=== PATIENT | male | born 1950 | race Caucasian/White ===

== ENCOUNTER 2017-05-30 08:53 | Inpatient (IN) | payer MEDICARE, BC ==
[2017-05-30] MEDS ORDERED: Scopolamine 1.5 MG Transdermal Patch TOP SCH (09:00)
[2017-05-30] MEDS ORDERED: Gabapentin 300 MG Cap PO ONE (09:00)
[2017-05-30] MEDS ORDERED: Propofol 200 MG/20 ML SDV ONE (09:04)
[2017-05-30] MEDS ORDERED: Midazolam 1 MG/ML 2 ML SDV ONE (09:04)
[2017-05-30] MEDS ORDERED: Neostigmine Methylsulfate 1 MG/ML 5 ML Syringe ONE (09:04)
[2017-05-30] MEDS ORDERED: Succinylcholine 200 MG/10 ML MDV ONE (09:04)
[2017-05-30] MEDS ORDERED: Dexamethasone 4 MG/ML SDV ONE (09:04)
[2017-05-30] MEDS ORDERED: Glycopyrrolate 0.2 MG/ML 5 ML MDV ONE (09:04)
[2017-05-30] MEDS ORDERED: Rocuronium 50 MG/5 ML Vial ONE (09:04)
[2017-05-30] MEDS ORDERED: Ondansetron 4 MG/2 ML SDV ONE (09:04)
[2017-05-30] MEDS: Lactated Ringers 1,000 ML IV SCH (10:41)
[2017-05-30] MEDS ORDERED: Ketamine 500 MG/5 ML MDV IV SCH (10:45)
[2017-05-30] MEDS ORDERED: Ropivacaine 49.25 ML, Ketorolac 30 MG, EPINEPHrine 0.5 MG, cloNIDine 80 MCG, Sodium Chl... INJECT ONE ×5 (10:45)
[2017-05-30] MEDS ORDERED: Thrombin (Bovine) 5,000 Unit Kit ONE (11:10)
[2017-05-30] MEDS ORDERED: Povidone-Iodine 10% Soln 118.25 ML Bottle ONE (11:10)
[2017-05-30] MEDS ORDERED: ePHEDrine 50 MG/ML SDV ONE (13:16)
[2017-05-30] MEDS: Tranexamic Acid 1,000 MG in Sodium Chloride 0.9% 50 ML IV SCH ×4 (13:20→20:40)
[2017-05-30] MEDS: ceFAZolin 2 GM in Sodium Chloride 0.9% 50 ML IV ONE ×2 (13:39→17:10)
[2017-05-30] MEDS ORDERED: Lactated Ringers 1,000 ML ONE ×4 (13:59→16:28)
[2017-05-30] MEDS ORDERED: fentaNYL 100 MCG/2 ML SDV ONE ×4 (14:20→15:55)
[2017-05-30] MEDS ORDERED: Naloxone 0.4 MG/ML SDV IVPUSH PRN (16:44)
[2017-05-30] MEDS ORDERED: Zolpidem 5 MG Tab PO PRN (16:44)
[2017-05-30] MEDS ORDERED: Aluminum Hydroxide/Magnesium Hydroxide/Simethicone Susp 30 ML Cup PO PRN (16:44)
[2017-05-30] MEDS ORDERED: Acetaminophen/oxyCODONE 325-5 MG Tab PO PRN (16:44)
[2017-05-30] MEDS ORDERED: Sodium Chloride 0.9% 10 ML Syringe FLUSH PRN (16:44)
[2017-05-30] MEDS ORDERED: HYDROmorphone 1 MG/ML Syringe IVPUSH PRN (16:44)
[2017-05-30] MEDS ORDERED: Magnesium Hydroxide 400 MG/5 ML Susp 30 ML Cup PO PRN (16:44)
[2017-05-30] MEDS ORDERED: Sennosides 8.6 MG Tab PO PRN (16:44)
[2017-05-30] MEDS: VERIFY SCOPOLAMINE PATCH TOP SCH (17:49)
[2017-05-30] MEDS ORDERED: Ondansetron 4 MG/2 ML SDV IVPUSH PRN (19:48)
[2017-05-30] MEDS: ceFAZolin 2 GM in Sodium Chloride 0.9% 50 ML IV SCH (20:11)
--- NOTE | 2017-05-30 22:37 | OR ---
DATE OF PROCEDURE: 05/30/2017 PREOPERATIVE DIAGNOSES: 1. Lumbar spondylolisthesis, L4-5. 2. Lumbar stenosis, L4-5. 3. Lumbar foraminal stenosis, L5-S1. 4. Low back pain. 5. Lumbar radiculopathy with neurogenic claudication. POSTOPERATIVE DIAGNOSES: 1. Lumbar spondylolisthesis, L4-5. 2. Lumbar stenosis, L4-5. 3. Lumbar foraminal stenosis, L5-S1. 4. Low back pain. 5. Lumbar radiculopathy with neurogenic claudication. PROCEDURE: 1. Transforaminal lumbar interbody fusion, L4-L5 and L5-S1. 2. Insertion of interbody devices at L4-L5 and L5-S1. 3. Laminectomy required in addition decompression at L4-L5 and L5-S1. 4. Segmental instrumentation, L4-5 and L5-S1. 5. Use of intraoperative fluoroscopy. 6. Autograft from laminectomy site used in posterior lateral gutter fusion as well as interbody fusion. CO-SURGEON: JOHN Reynoso. ANESTHESIA: General endotracheal intubation. FLUID: Lactated Ringer solution. ESTIMATED BLOOD LOSS: 100 mL. COMPLICATIONS: None. SPECIMEN: None. DISCHARGE DISPOSITION: Stable to PACU. INDICATIONS FOR THE PROCEDURE: The patient was seen preoperatively by myself in the clinic. Preoperative imaging confirmed the above-mentioned diagnosis. He had failed nonoperative treatment. Risks and benefits of the procedure were explained to the patient. Informed consent was obtained. DETAILS OF PROCEDURE: The patient was seen preoperatively by myself and the anesthesia staff in the preop holding area, where the operative site was marked. He was brought to the operative suite by the anesthesia staff where general anesthesia was administered. Neuromonitoring leads were placed. Sterile Cazares catheter was placed. He was placed in the prone position on a Omar table. All extremities were found to be well padded. The back was then clipped, prepped, and draped. The fluoroscopy unit was draped in a sterile manner. Time-out was called identifying the correct patient, correct procedure, the correct site, and antibiotics had been given at appropriate period of time. Lateral fluoroscopy was used to visualize the pedicles of L4-S1 in the midline. An incision was made down through the skin, and into the tip to the fascia. Bleeding was controlled during the case with Bovie electrocautery, bipolar electrocautery, as well as an Aquamantys 5.0 unit. The fascia was then incised and dissection was carried down over the spinous processes of L4 through S1. The respective lamina, transverse processes, and sacral ala, used a Denny as well as the Bovie electrocautery unit. Two #75 blades and two #65 blades on the Versa-Trac were used for retraction at this point and time. Our levels were confirmed again on fluoroscopy and we then cleaned out all of our soft tissues as best we could as well as the pars and identified the transverse processes bilaterally. Screws were placed on the left and then the right screws were placed by drilling a starting point using a PediGuard to make a track and then pedicle probe followed by tap followed by screw placement. This was done on the left and then the right. All screws were 6.5 x 45 mm globus screws except for the S1 on the left which was 6 x 0.5 x 40. After screw placement was confirmed, these were tested, I did replace the L4 screw on the right as it tested at 11, then it tested at 17, all screws tested above 15. We then concentrated on our laminectomy as I performed laminectomies at L4-L5 and L5-S1. This was done by removing any soft tissue and then removing the bone for bone graft with large rongeurs starting at the spinous processes as much lamina as I could as well as the facet on the left side. I then used the [place] rongeurs and avoided the dura. No durotomy was encountered during the case and then I used an osteotome on the inferior facet of L4 and the inferior facet of L5 on the left. We then performed a full total facetectomy and removing superior facet of L5 and S1 on the left using Kerrison rongeurs. After this had been performed, I used bipolar electrocautery to go down to the superior aspect of the pedicle of L5 and S1 and then made sure that we had identified the exiting nerve root superiorly. These were well protected and we were well clear of any exiting nerve roots. I then incised the in posterior annulus and then sequentially shaved from 7-12 at L4-L5 and then 7-10 at L5-S1. I then used a straight upgoing to downgoing curettes as well as straight and angled pituitaries to remove as much disc material as possible and rough up the endplates. We inserted our interbody first at L4-5. This was 10 x 22, 10 degree, 8-14 which was expanded all the way and then L5- S1, a 10 x 26, 50 degree, 10-17. This was done under fluoroscopy. Once this had been accomplished, we then used the finish cleaner for the screws in order to remove enough bone to place the tulips. We then placed the tulips as well as two 70 mm rods bilaterally. We placed some locking caps and then torqued them. After this, we then copiously irrigated with 3 L of Betadine infused irrigation. I then decorticated the transverse processes on the right of L4 and L5 as well as sacral ala on the right at S1. We then placed our remaining bone graft in the posterior lateral gutter on the right. Please note that I also had placed bone graft through bone funnel at L4-L5 and L5-S1 prior to the interbody device placement. We then controlled any extra bleeders with thrombin-soaked Gelfoam as well as Floseal and Gelfoam powder during the procedure. We then closed the deep fascia with #2 interlocking Vicryl followed by #2 running Vicryl followed by another liter of Betadine infused irrigation. We took final films and then used #2 STRATAFIX for the subcutaneous layer followed by 3-0 nylon. Please note that neuro monitoring was normal at baseline and normal throughout the case. He was placed into a supine position on the hospital bed. Neuromonitoring leads were then removed and then he was taken to the PACU in stable condition. Jacob Ontiveros DO /[id number]
[2017-05-31] MEDS: Lactated Ringers 1,000 ML IV SCH (04:02)
[2017-05-31] MEDS: ceFAZolin 2 GM in Sodium Chloride 0.9% 50 ML IV SCH ×2 (04:02→12:18)
[2017-05-31] MEDS: Multivitamins with Iron/Calcium/Folic Acid/Minerals Tab PO SCH (08:24)
[2017-05-31] MEDS: Losartan 50 MG Tab PO SCH (08:25)
[2017-05-31] MEDS: VERIFY SCOPOLAMINE PATCH TOP SCH (08:25)
--- NOTE | 2017-05-31 08:25 | PCM.PN ---
- General Info Date of Service: 05/31/17 Admission Dx/Problem (Free Text): Patient is POD 1 of a lumbar fusion of L4-L5, and L5-S1. He has some numbness in the right thigh but otherwise has no issues. Functional Status: Reports: Pain Controlled, Tolerating Diet, Ambulating, Urinating - Patient Data Vitals - Most Recent: Last Vital Signs Temp 37.4 C 05/31/17 07:04 Pulse 95 05/31/17 07:04 Resp 16 05/31/17 07:04 BP 109/74 05/31/17 07:04 Pulse Ox 95 05/31/17 07:19 Weight - Most Recent: 228 lb 8 oz I&O - Last 24 Hours: Intake & Output 05/30/17 05/31/17 05/31/17 22:59 06:59 14:59 Intake Total 2810 1908 Output Total 790 975 500 Balance 2019 933 -500 Lab Results Last 24 Hours: Laboratory Results - last 24 hr 05/30/17 05/31/17 05/31/17 Range/Units 09:30 05:30 05:30 WBC 9.4 (4.5-11.0) K/uL RBC 3.41 L (4.30-5.90) M/uL Hgb 11.0 L D (12.0-15.0) g/dL Hct 32.7 L (40.0-54.0) % MCV 96 (80-98) fL MCH 32 H (27-31) pg MCHC 34 (32-36) % Plt Count 177 (150-400) K/uL Neut % (Auto) 81 H (36-66) % Lymph % (Auto) 10 L (24-44) % [place] % (Auto) 9 H (2-6) % Eos % (Auto) 0 L (2-4) % Baso % (Auto) 0 (0-1) % Sodium 137 L (140-148) mmol/L Potassium 4.2 (3.6-5.2) mmol/L Chloride 103 (100-108) mmol/L Carbon Dioxide 28 (21-32) mmol/L Anion Gap 10.2 (5.0-14.0) mmol/L BUN 14 (7-18) mg/dL Creatinine 1.1 (0.8-1.3) mg/dL Est Cr Clr Drug Dosing 66.36 mL/min Estimated GFR (MDRD) > 60 (>60) Glucose 141 H (74-106) mg/dL Calcium 8.4 L (8.5-10.1) mg/dL Blood Type A POSITIVE Gel Antibody Screen Negative Med Orders - Current: Current Medications Al Hydroxide/Mg Hydroxide (Mag-Al Plus) 30 ml PO Q4H PRN PRN Reason: Indigestion Atorvastatin Calcium (Lipitor) 5 mg PO DAILY [facility] Diazepam (Valium) 5 mg IVPUSH Q6H PRN PRN Reason: Spasms Hydrochlorothiazide (Hydrochlorothiazide) 25 mg PO DAILY [facility] Hydromorphone HCl (Dilaudid) 1 mg IVPUSH Q2H PRN PRN Reason: Pain Lactated Ringer's (Ringers, Lactated) 1,000 mls @ 100 mls/hr IV ASDIRECTED [facility] Last Admin: 05/31/17 04:02 Dose: 100 mls/hr Cefazolin Sodium 2 gm/ Sodium (Chloride) 50 mls @ 100 mls/hr IV Q8H [facility] Stop: 05/31/17 12:29 Last Admin: 05/31/17 04:02 Dose: 100 mls/hr Losartan Potassium (Cozaar) 100 mg PO DAILY [facility] Magnesium Hydroxide (Milk Of Magnesia) 30 ml PO BID PRN PRN Reason: Constipation Multivitamins/Minerals (Thera M Plus) 1 tab PO DAILY [facility] Naloxone HCl (Narcan) 0.2 mg IVPUSH ONETIME PRN PRN Reason: Oversedation Verify Scopolamine (Patch) 0 each TOP DAILY [facility] Last Admin: 05/30/17 17:49 Dose: Not Given Ondansetron HCl (Zofran) 8 mg IVPUSH Q8H PRN PRN Reason: Nausea/Vomiting Last Admin: 05/30/17 20:11 Dose: 8 mg Oxycodone/Acetaminophen (Percocet 325-5 Mg) 2 tab PO Q4H PRN PRN Reason: Pain Last Admin: 05/30/17 21:24 Dose: 2 tab Scopolamine (Transderm-Scop) 1.5 mg TOP Q72H [facility] Stop: 06/02/17 07:00 Last Admin: 05/30/17 09:30 Dose: 1.5 mg Senna (Senna) 8.6 mg PO BID PRN PRN Reason: Constipation Sodium Chloride (Saline Flush) 10 ml FLUSH ASDIRECTED PRN PRN Reason: Keep Vein Open Zolpidem Tartrate (Ambien) 5 mg PO BEDTIME PRN PRN Reason: Sleep Discontinued Medications Ropivacaine 49.25 ml/Ketorolac Tromethamine 30 mg/Epinephrine HCl 0.5 mg/ Clonidine HCl 80 mcg/ Sodium Chloride 48.45 ml 0 ml INJECT ONETIME ONE Stop: 05/30/17 10:46 Last Admin: 05/30/17 13:41 Dose: 100 ml Dexamethasone (Dexamethasone) Confirm Administered Dose 4 mg .ROUTE .STK-MED ONE Stop: 05/30/17 09:05 Ephedrine Sulfate (Ephedrine Sulfate) Confirm Administered Dose 50 mg .ROUTE .STK-MED ONE Stop: 05/30/17 13:17 Fentanyl (Sublimaze) Confirm Administered Dose 100 mcg .ROUTE .STK-MED ONE Stop: 05/30/17 14:21 Fentanyl (Sublimaze) Confirm Administered Dose 100 mcg .ROUTE .STK-MED ONE Stop: 05/30/17 14:49 Fentanyl (Sublimaze) Confirm Administered Dose 100 mcg .ROUTE .STK-MED ONE Stop: 05/30/17 15:30 Fentanyl (Sublimaze) Confirm Administered Dose 100 mcg .ROUTE .STK-MED ONE Stop: 05/30/17 15:56 Fentanyl Citrate (Fentanyl) Confirm Administered Dose 500 mcg .ROUTE .STK-MED ONE Stop: 05/30/17 09:05 Gabapentin (Neurontin) 300 mg PO ONETIME ONE Stop: 05/30/17 09:01 Last Admin: 05/30/17 09:30 Dose: 300 mg Glycopyrrolate (Robinul) Confirm Administered Dose 1 mg .ROUTE .STK-MED ONE Stop: 05/30/17 09:05 Cefazolin Sodium 2 gm/ Sodium (Chloride) 50 mls @ 100 mls/hr IV ONETIME ONE Stop: 05/30/17 10:29 Last Admin: 05/30/17 17:10 Dose: Not Given Tranexamic Acid 1,000 mg/ (Sodium Chloride) 60 mls @ 240 mls/hr IV Q3H [facility] Stop: 05/30/17 13:59 Last Admin: 05/30/17 20:40 Dose: Not Given Ketamine HCl 100 mg/ Sodium (Chloride) 100 mls @ 21 mls/hr IV ASDIRECTED [facility] Lactated Ringer's (Ringers, Lactated) Confirm Administered Dose 1,000 mls @ as directed .ROUTE .[facility] ONE Stop: 05/30/17 14:00 Lactated Ringer's (Ringers, Lactated) Confirm Administered Dose 1,000 mls @ as directed .ROUTE .[facility]-MED ONE Stop: 05/30/17 14:07 Lactated Ringer's (Ringers, Lactated) Confirm Administered Dose 1,000 mls @ as directed .ROUTE .[facility] ONE Stop: 05/30/17 15:00 Lactated Ringer's (Ringers, Lactated) Confirm Administered Dose 1,000 mls @ as directed .ROUTE .[facility] ONE Stop: 05/30/17 16:29 Ketamine HCl (Ketalar) 35 mg IV ASDIRECTED [facility] Midazolam HCl (Versed 1 Mg/Ml) Confirm Administered Dose 2 mg .ROUTE .ST-MED ONE Stop: 05/30/17 09:05 Neostigmine Methylsulfate (Neostigmine) Confirm Administered Dose 5 mg .ROUTE .ST-MED ONE Stop: 05/30/17 09:05 Ondansetron HCl (Zofran) Confirm Administered Dose 4 mg .ROUTE .[facility] ONE Stop: 05/30/17 09:05 Povidone Iodine (Betadine 10% Soln) Confirm Administered Dose 1 ml .ROUTE .ST- MED ONE Stop: 05/30/17 11:11 Last Admin: 05/30/17 12:03 Dose: 1 ml Propofol (Diprivan 20 Ml) Confirm Administered Dose 200 mg .ROUTE .ST-MED ONE Stop: 05/30/17 09:05 Rocuronium [place] (Zemuron) Confirm Administered Dose 50 mg .ROUTE .[facility] ONE Stop: 05/30/17 09:05 Succinylcholine Chloride (Quelicin) Confirm Administered Dose 200 mg .ROUTE .[facility] -[facility] ONE Stop: 05/30/17 09:05 Thrombin (Thrombin-Jmi) Confirm Administered Dose 15,000 unit .ROUTE .[facility] ONE Stop: 05/30/17 11:11 Last Admin: 05/30/17 12:03 Dose: 10,000 unit - Exam General: Alert, Oriented Back Exam: Normal Inspection Extremities: Normal Inspection, Normal Range of Motion, Non-Tender, No Pedal Edema, Normal Capillary Refill, Other (numbness of the right thigh) Peripheral Pulses: 2+: Dorsalis Pedis (L), Dorsalis Pedis (R) Skin: Warm, Dry, Intact Wound/Incisions: Healing Well, Dressing Dry and Intact Neurological: No New Focal Deficit - Problem List Review Problem List Initiated/Reviewed/Updated: Yes - My Orders Last 24 Hours: My Active Orders 05/30/17 16:44 Patient Status [ADT] Routine Ambulate [RC] QID Head of Bed Elevation [RC] ASDIRECTED Immobilizer [RC] ASDIRECTED Intake and Output [RC] QSHIFT Neurovascular Check [RC] Q4HR Notify Provider Intake and Out [RC] ASDIRECTED Notify Provider Laboratory Res [RC] ASDIRECTED Notify Provider Status Change [RC] ASDIRECTED Notify Provider Vital Signs [RC] ASDIRECTED Oxygen Therapy [RC] PRN Pulse Oximetry [RC] CONTINUOUS RT Incentive Spirometry [RC] ASDIRECTED Turn, Cough, Deep Breathe [RC] .PRN Up to Chair [RC] QID Vital Signs [RC] PER UNIT ROUTINE Wound Care [RC] Q12H OT Evaluation and Treatment [CONS] Routine PT Evaluation and Treatment [CONS] Routine Acetaminophen/oxyCODONE [Percocet 325-5 MG] 2 tab PO Q4H PRN Alum Hydrox/Mag Hydrox/Simeth [Mag-Al Plus] 30 ml PO Q4H PRN Diazepam [Valium] 5 mg IVPUSH Q6H PRN HYDROmorphone [Dilaudid] 1 mg IVPUSH Q2H PRN Magnesium Hydroxide [Milk of Magnesia] 30 ml PO BID PRN Naloxone [Narcan] 0.2 mg IVPUSH ONETIME PRN Sennosides [Senna] 8.6 mg PO BID PRN Sodium Chloride 0.9% [Saline Flush] 10 ml FLUSH ASDIRECTED PRN Zolpidem [Ambien] 5 mg PO BEDTIME PRN Encourage Fluids [OM.PC] Routine Saline Lock Insert [OM.PC] Routine Sequential Compression Device [OM.PC] Routine Resuscitation Status Routine 05/30/17 16:45 Insert Urinary Catheter [OM.PC] ONETIME 05/30/17 19:48 Ondansetron [Zofran] 8 mg IVPUSH Q8H PRN 05/30/17 20:00 ceFAZolin [Ancef] 2 gm Sodium Chloride 0.9% [Normal Saline] 50 ml IV Q8H 05/30/17 Lunch Advance Diet Instructions [DIET] 05/31/17 09:00 Hydrochlorothiazide 25 mg PO DAILY Losartan [Cozaar] 100 mg PO DAILY Multivitamins w-Iron/Ca/FA/Min [Thera M Plus] 1 tab PO DAILY atorvaSTATin [Lipitor] 5 mg PO DAILY 06/01/17 05:15 BASIC METABOLIC PANEL,BMP [CHEM] DAILY CBC WITH AUTO DIFF [HEME] DAILY 06/02/17 05:15 BASIC METABOLIC PANEL,BMP [CHEM] DAILY CBC WITH AUTO DIFF [HEME] DAILY 06/03/17 05:15 BASIC METABOLIC PANEL,BMP [CHEM] DAILY CBC WITH AUTO DIFF [HEME] DAILY - Plan Plan:: Patient is doing well. His pain is undercotrol at this time due to changed from percocet to ultram due to nausea. He is ambulating without any difficulties. He will continue with pain managment and PT/OT today for strengthening.
[2017-05-31] MEDS: atorvaSTATin 10 MG Tab PO SCH (08:26)
[2017-05-31] MEDS: Hydrochlorothiazide 25 MG Tab PO SCH (08:26)
[2017-05-31] MEDS ORDERED: Acetaminophen 325 MG Tab PO PRN (12:08)
[2017-05-31] MEDS ORDERED: traMADol 50 MG Tab PO PRN (12:10)
[2017-05-31] MEDS: Acetaminophen/HYDROcodone 325-5 MG Tab PO PRN (19:50)
[2017-06-01] MEDS: Acetaminophen/HYDROcodone 325-5 MG Tab PO PRN ×2 (03:35→09:32)
[2017-06-01] MEDS: atorvaSTATin 10 MG Tab PO SCH (09:23)
[2017-06-01] MEDS: Multivitamins with Iron/Calcium/Folic Acid/Minerals Tab PO SCH (09:24)
[2017-06-01] MEDS: Hydrochlorothiazide 25 MG Tab PO SCH (09:24)
[2017-06-01] MEDS: VERIFY SCOPOLAMINE PATCH TOP SCH (09:24)
[2017-06-01] MEDS: Losartan 50 MG Tab PO SCH (09:24)
--- NOTE | 2017-06-01 11:45 | PCM.DCSUM1 ---
Discharge Summary - Hospital Course Free Text/Narrative:: Patient is doing well. His pain is undercontrol with oral pain medication at this time. He is ambulating without difficulties. - Discharge Data Discharge Date: 06/01/17 Discharge Disposition: Home, Self-Care 01 Condition: Good - Patient Summary/Data Consults: Consultations 05/30/17 16:44 OT Evaluation and Treatment [CONS] Routine Please Evaluate and Treat. OT Reason for Consult: Strengthening This query below is only for informational purposes and is not editable. PT Evaluation and Treatment [CONS] Routine Please Evaluate and Treat. PT Reason for Consult: Strengthening This query below is only for informational purposes and is not editable. - Patient Instructions Diet: Usual Diet as Tolerated Activity: Apply Ice, As Tolerated, No Lifting Over 10 Pounds Driving: Do Not Drive Showering/Bathing: May Shower Wound/Incision Care: Keep Operative Site/Wound Site Clean and Dry, Change Dressing Daily Notify Provider of: Fever, Increased Pain, Swelling and Redness, Drainage, Nausea and/or Vomiting - Discharge Plan Prescriptions/Med Rec: Acetaminophen/HYDROcodone [[place] 325-5 MG] 1 tab PO Q6H PRN #90 tablet PRN Reason: Pain Home Medications: Home Meds Hydrochlorothiazide 0.5 tab PO DAILY 05/11/17 [History] Losartan [Cozaar] 1 tab PO DAILY 05/11/17 [History] atorvaSTATin [Lipitor] 5 mg PO DAILY 05/11/17 [History] Aspirin [Halfprin] 81 mg PO DAILY 05/30/17 [History] Multivitamin [Multi-Vitamin Daily] 1 tab PO DAILY 05/30/17 [History] Acetaminophen/HYDROcodone [[place] 325-5 MG] 1 tab PO Q6H PRN #90 tablet 06/01/17 [Rx] Patient Handouts: Spinal Fusion, Care After, [id number], Spinal Fusion, Spinal Fusion, [id number] Referrals: Tanisha Wright, [employer] [Nurse Practitioner] - (2 week follow up for suture removal. ) - Discharge Summary/Plan Comment DC Time >30 min.: Yes Discharge Summary/Plan Comment: Patient will be discharged to home today. He will follow up with Tanisha Wright NP in 2 weeks for suture removal. - Patient Data Vitals - Most Recent: Last Vital Signs Temp 37.1 C 06/01/17 11:36 Pulse 88 06/01/17 11:36 Resp 16 06/01/17 11:36 BP 118/76 06/01/17 11:36 Pulse Ox 95 06/01/17 11:36 Weight - Most Recent: 228 lb 8 oz I&O - Last 24 hours: Intake & Output 05/31/17 06/01/17 06/01/17 22:59 06:59 14:59 Intake Total 660 Output Total 9968 819 6209 Balance -323 -098 -4716 Lab Results - Last 24 hrs: Laboratory Results - last 24 hr 06/01/17 06/01/17 Range/Units 05:15 05:20 WBC 8.5 (4.5-11.0) K/uL RBC 3.41 L (4.30-5.90) M/uL Hgb 10.7 L (12.0-15.0) g/dL Hct 33.3 L (40.0-54.0) % MCV 98 (80-98) fL MCH 31 (27-31) pg MCHC 32 (32-36) % Plt Count 167 (150-400) K/uL Neut % (Auto) 74 H (36-66) % Lymph % (Auto) 14 L (24-44) % [place] % (Auto) 11 H (2-6) % Eos % (Auto) 1 L (2-4) % Baso % (Auto) 0 (0-1) % Sodium 138 L (140-148) mmol/L Potassium 4.1 (3.6-5.2) mmol/L Chloride 102 (100-108) mmol/L Carbon Dioxide 32 (21-32) mmol/L Anion Gap 8.1 (5.0-14.0) mmol/L BUN 12 (7-18) mg/dL Creatinine 1.0 (0.8-1.3) mg/dL Est Cr Clr Drug Dosing 73.00 mL/min Estimated GFR (MDRD) > 60 (>60) Glucose 137 H (74-106) mg/dL Calcium 8.4 L (8.5-10.1) mg/dL Med Orders - Current: Current Medications Acetaminophen (Tylenol) 650 mg PO Q4H PRN PRN Reason: Headache Last Admin: 05/31/17 12:17 Dose: 650 mg Hydrocodone Bitart/Acetaminophen ([place] 325-5 Mg) 1 - 2 tab PO Q6H PRN PRN Reason: Pain Last Admin: 06/01/17 09:32 Dose: 2 tab Al Hydroxide/Mg Hydroxide (Mag-Al Plus) 30 ml PO Q4H PRN PRN Reason: Indigestion Last Admin: 06/01/17 10:36 Dose: 30 ml Atorvastatin Calcium (Lipitor) 5 mg PO DAILY [facility] Last Admin: 06/01/17 09:23 Dose: 5 mg Diazepam (Valium) 5 mg IVPUSH Q6H PRN PRN Reason: Spasms Last Admin: 05/31/17 15:57 Dose: 5 mg Hydrochlorothiazide (Hydrochlorothiazide) 25 mg PO DAILY [facility] Last Admin: 06/01/17 09:24 Dose: 25 mg Hydromorphone HCl (Dilaudid) 1 mg IVPUSH Q2H PRN PRN Reason: Pain Last Admin: 05/31/17 13:31 Dose: 1 mg Losartan Potassium (Cozaar) 100 mg PO DAILY [facility] Last Admin: 06/01/17 09:24 Dose: 100 mg Magnesium Hydroxide (Milk Of Magnesia) 30 ml PO BID PRN PRN Reason: Constipation Multivitamins/Minerals (Thera M Plus) 1 tab PO DAILY [facility] Last Admin: 06/01/17 09:24 Dose: 1 tab Naloxone HCl (Narcan) 0.2 mg IVPUSH ONETIME PRN PRN Reason: Oversedation Verify Scopolamine (Patch) 0 each TOP DAILY [facility] Last Admin: 06/01/17 09:24 Dose: Not Given Ondansetron HCl (Zofran) 8 mg IVPUSH Q8H PRN PRN Reason: Nausea/Vomiting Last Admin: 05/30/17 20:11 Dose: 8 mg Scopolamine (Transderm-Scop) 1.5 mg TOP Q72H [facility] Stop: 06/02/17 07:00 Last Admin: 05/30/17 09:30 Dose: 1.5 mg Senna (Senna) 8.6 mg PO BID PRN PRN Reason: Constipation Last Admin: 06/01/17 09:33 Dose: 8.6 mg Sodium Chloride (Saline Flush) 10 ml FLUSH ASDIRECTED PRN PRN Reason: Keep Vein Open Tramadol HCl (Ultram) 100 mg PO Q6H PRN PRN Reason: Pain Last Admin: 05/31/17 12:27 Dose: 100 mg Zolpidem Tartrate (Ambien) 5 mg PO BEDTIME PRN PRN Reason: Sleep Discontinued Medications Ropivacaine 49.25 ml/Ketorolac Tromethamine 30 mg/Epinephrine HCl 0.5 mg/ Clonidine HCl 80 mcg/ Sodium Chloride 48.45 ml 0 ml INJECT ONETIME ONE Stop: 05/30/17 10:46 Last Admin: 05/30/17 13:41 Dose: 100 ml Dexamethasone (Dexamethasone) Confirm Administered Dose 4 mg .ROUTE .STK-MED ONE Stop: 05/30/17 09:05 Ephedrine Sulfate (Ephedrine Sulfate) Confirm Administered Dose 50 mg .ROUTE .STK-MED ONE Stop: 05/30/17 13:17 Fentanyl (Sublimaze) Confirm Administered Dose 100 mcg .ROUTE .STK-MED ONE Stop: 05/30/17 14:21 Fentanyl (Sublimaze) Confirm Administered Dose 100 mcg .ROUTE .STK-MED ONE Stop: 05/30/17 14:49 Fentanyl (Sublimaze) Confirm Administered Dose 100 mcg .ROUTE .STK-MED ONE Stop: 05/30/17 15:30 Fentanyl (Sublimaze) Confirm Administered Dose 100 mcg .ROUTE .STK-MED ONE Stop: 05/30/17 15:56 Fentanyl Citrate (Fentanyl) Confirm Administered Dose 500 mcg .ROUTE .STK-MED ONE Stop: 05/30/17 09:05 Gabapentin (Neurontin) 300 mg PO ONETIME ONE Stop: 05/30/17 09:01 Last Admin: 05/30/17 09:30 Dose: 300 mg Glycopyrrolate (Robinul) Confirm Administered Dose 1 mg .ROUTE .STK-MED ONE Stop: 05/30/17 09:05 Lactated Ringer's (Ringers, Lactated) 1,000 mls @ 100 mls/hr IV ASDIRECTED [facility] Last Admin: 05/31/17 04:02 Dose: 100 mls/hr Cefazolin Sodium 2 gm/ Sodium (Chloride) 50 mls @ 100 mls/hr IV ONETIME ONE Stop: 05/30/17 10:29 Last Admin: 05/30/17 17:10 Dose: Not Given Tranexamic Acid 1,000 mg/ (Sodium Chloride) 60 mls @ 240 mls/hr IV Q3H [facility] Stop: 05/30/17 13:59 Last Admin: 05/30/17 20:40 Dose: Not Given Ketamine HCl 100 mg/ Sodium (Chloride) 100 mls @ 21 mls/hr IV ASDIRECTED [facility] Lactated Ringer's (Ringers, Lactated) Confirm Administered Dose 1,000 mls @ as directed .ROUTE .STK-MED ONE Stop: 05/30/17 14:00 Lactated Ringer's (Ringers, Lactated) Confirm Administered Dose 1,000 mls @ as directed .ROUTE .STK-MED ONE Stop: 05/30/17 14:07 Lactated Ringer's (Ringers, Lactated) Confirm Administered Dose 1,000 mls @ as directed .ROUTE .STK-MED ONE Stop: 05/30/17 15:00 Lactated Ringer's (Ringers, Lactated) Confirm Administered Dose 1,000 mls @ as directed .ROUTE .STK-MED ONE Stop: 05/30/17 16:29 Cefazolin Sodium 2 gm/ Sodium (Chloride) 50 mls @ 100 mls/hr IV Q8H [facility] Stop: 05/31/17 12:29 Last Admin: 05/31/17 12:18 Dose: 100 mls/hr Ketamine HCl (Ketalar) 35 mg IV ASDIRECTED [facility] Midazolam HCl (Versed 1 Mg/Ml) Confirm Administered Dose 2 mg .ROUTE .STK-MED ONE Stop: 05/30/17 09:05 Neostigmine Methylsulfate (Neostigmine) Confirm Administered Dose 5 mg .ROUTE .STK-MED ONE Stop: 05/30/17 09:05 Ondansetron HCl (Zofran) Confirm Administered Dose 4 mg .ROUTE .STK-MED ONE Stop: 05/30/17 09:05 Oxycodone/Acetaminophen (Percocet 325-5 Mg) 2 tab PO Q4H PRN PRN Reason: Pain Last Admin: 05/30/17 21:24 Dose: 2 tab Povidone Iodine (Betadine 10% Soln) Confirm Administered Dose 1 ml .ROUTE .STK- MED ONE Stop: 05/30/17 11:11 Last Admin: 05/30/17 12:03 Dose: 1 ml Propofol (Diprivan 20 Ml) Confirm Administered Dose 200 mg .ROUTE .STK-MED ONE Stop: 05/30/17 09:05 Rocuronium [place] (Zemuron) Confirm Administered Dose 50 mg .ROUTE .STK-MED ONE Stop: 05/30/17 09:05 Succinylcholine Chloride (Quelicin) Confirm Administered Dose 200 mg .ROUTE .STK -MED ONE Stop: 05/30/17 09:05 Thrombin (Thrombin-Jmi) Confirm Administered Dose 15,000 unit .ROUTE .STK-MED ONE Stop: 05/30/17 11:11 Last Admin: 05/30/17 12:03 Dose: 10,000 unit *Q Meaningful Use (DIS) - VTE *Q VTE Criteria *Q: - Stroke *Q Stroke Criteria *Q: - AMI *Q AMI Criteria *Q:
[2017-06-01] MEDS ORDERED: Ondansetron 4 MG Tab.DIS PO STA (14:31)
[2017-06-01 14:44] VITALS: BP 126/80
== END 2017-06-01 14:50 | disposition home or self-care (01) | DRG 460 ==
LOC: JP.SDSSCHI 08:53 → JP.SDS 08:53 → EDSTATUS 10:30 → JP.MS 17:30
PROVIDERS: ADMIT Orthopaedic Surgery; ATTEND Family Medicine
PROC: 0SG00AJ Fusion of Lumbar Vertebral Joint with Interbody Fusion Device, Posterior Approach, Anterior Column, Open Approach (ICD-10-PCS; principal; 2017-05-30)
PROC: 0SG30AJ Fusion of Lumbosacral Joint with Interbody Fusion Device, Posterior Approach, Anterior Column, Open Approach (ICD-10-PCS; 2017-05-30)
PROC: 00NY0ZZ Release Lumbar Spinal Cord, Open Approach (ICD-10-PCS; 2017-05-30)
DX: M48.06 Spinal stenosis, lumbar region (principal); M51.26 Other intervertebral disc displacement, lumbar region; M43.16 Spondylolisthesis, lumbar region; Z79.82 Long term (current) use of aspirin; Z79.899 Other long term (current) drug therapy
CPT/HCPCS: 36415; 76001; 80048; 85025; 86850; 86900; 86901; 94762; 97162-GP; 97165-GO; A9270-GY; C1713; J0171; J0330; J0690; J0735; J1100; J1170; J1885; J2250; J2405; J2704; J2710; J2795; J3010; J3360; J7030; J7050; J7120

== ENCOUNTER 2018-07-02 08:36 | Day surgery (SDC) | payer MEDICARE, BC ==
[2018-07-02] MEDS ORDERED: Lactated Ringers 1,000 ML IV SCH (09:15)
[2018-07-02] MEDS ORDERED: fentaNYL 100 MCG/2 ML SDV ONE (09:24)
[2018-07-02] MEDS ORDERED: Midazolam 1 MG/ML 2 ML SDV ONE (09:25)
[2018-07-02] MEDS ORDERED: Propofol 200 MG/20 ML SDV ONE (09:25)
[2018-07-02] MEDS ORDERED: Glycopyrrolate 0.2 MG/ML 2 ML SDV ONE (10:42)
[2018-07-02 11:50] VITALS: BP 113/72
--- NOTE | 2018-07-02 12:04 | OR ---
DATE OF PROCEDURE: 07/02/2018 SURGEON: Filipe Eldridge MD PREOPERATIVE DIAGNOSIS: History of colon polyps. POSTOP DIAGNOSES: Diverticulosis, two distal rectal polyps. PROCEDURE PERFORMED: Colonoscopy to the cecum with snare cautery polypectomy of one distal rectal polyp and biopsy resection of a second small distal rectal polyp. ANESTHESIA: IV anesthesia with monitored anesthesia care. INDICATION: This 68-year-old white male is referred for a colonoscopy for history of colon polyps. He says his last colonoscopic exam was done 5 years ago. I counseled him for the procedure including risks and alternatives and he gave his informed consent to proceed. DESCRIPTION OF PROCEDURE: The patient was placed in the left lateral decubitus position. IV anesthesia was administered by the Anesthesia Service. Time-out was held. A rectal exam was performed, which was unremarkable. The flexible video Olympus colonoscope was introduced through his anus, up his rectum out his colon all the way to the cecum. En route, we saw a few scattered left-sided diverticula. There was no bleeding or inflammation associated with any of them. Once the cecum was reached, the scope was slowly withdrawn, examining the mucosa throughout. No additional mucosal abnormalities noted until we reached the distal rectum. Here, we saw a moderate sized polyp which was removed with the snare. This involved placing the snare about its base, elevating it up away from the bowel wall and applying electrocautery as was amputated. It was aspirated up through the scope and captured in a polyp trap. The second small polyp was seen in distal rectum. This was also removed with the biopsy forceps. The scope was retroflexed. The most distal rectum appeared unremarkable. The scope was straightened and removed. He tolerated the procedure well. Filipe Eldridge MD /[id number]
== END 2018-07-02 12:30 | disposition home or self-care (01) ==
LOC: JP.SDS 08:36
PROVIDERS: ATTEND Surgery
DX: Z12.11 Encounter for screening for malignant neoplasm of colon (principal); D12.8 Benign neoplasm of rectum; K57.30 Diverticulosis of large intestine without perforation or abscess without bleeding; I10 Essential (primary) hypertension; E66.3 Overweight; E78.5 Hyperlipidemia, unspecified; Z86.010 Personal history of colon polyps
CPT/HCPCS: 45380; 45385; J2250; J2704; J3010; J3490; J7120; 88305

== ENCOUNTER 2021-04-15 06:34 | Day surgery (SDC) | payer MEDICARE ==
[~2021-04-15 06:34] MED LIST: Sodium Chloride 0.9% 1,000 ML IV SCH
[2021-04-15] MEDS ORDERED: Midazolam 1 MG/ML 2 ML SDV ONE (07:18)
[2021-04-15] MEDS ORDERED: fentaNYL 100 MCG/2 ML SDV ONE (07:18)
[2021-04-15] MEDS ORDERED: Propofol 200 MG/20 ML SDV ONE ×2 (07:18→08:11)
[2021-04-15] MEDS ORDERED: Atropine 0.4 MG/ML SDV ONE (08:13)
--- NOTE | 2021-04-15 09:10 | OR ---
DATE OF PROCEDURE: 04/15/2021 SURGEON: Ean Costa MD PROCEDURE: Colonoscopy. FINDINGS: 1. Descending colon polyp, approximately 5 mm, completely removed using hot snare wire device. 2. Sigmoid colon polyp, approximately 5 mm, completely removed using cold biopsy forceps. COMPLICATION: None. REINFORCING STEEL WORKER: None. ANESTHETIC: MAC. PREOPERATIVE DIAGNOSIS: Screening colonoscopy. POSTOPERATIVE DIAGNOSIS: Screening colonoscopy. RISKS: Risks, benefits, alternatives, and limitations including, but not limited to, infection; bleeding; perforation; false positives; and false negatives were explained to the patient, who wished to proceed. DESCRIPTION OF PROCEDURE: The patient was placed in left lateral decubitus position. Digital rectal exam was performed without abnormality. Scope was introduced and advanced atraumatically to ileocecal valve. A photo was taken of appendiceal orifice. Scope was brought back to the ascending, transverse, descending colon, and retroflexed. No evidence of old or new blood. No masses. The polyps were identified and removed as described above. The diverticulosis was described as mild without evidence of diverticulitis or bleeding. No abnormalities on retroflexion. Greater than 8 minutes was spent removing the scope. The prep was acceptable. Approximately 90% of the luminal surface could be seen. The patient tolerated the procedure well. Ean Costa MD /[id number]
[2021-04-15 12:13] VITALS: BP 124/79; PULSE 75
[2021-04-15] MEDS ORDERED: Dicyclomine 10 MG Cap PO ONE (13:00)
== END 2021-04-15 13:36 | disposition home or self-care (01) ==
LOC: JP.SDS 06:34
PROVIDERS: ATTEND Surgery
DX: Z12.11 Encounter for screening for malignant neoplasm of colon (principal); K63.5 Polyp of colon; I10 Essential (primary) hypertension
CPT/HCPCS: 45380; 45385; 88305; A9270; J0461; J2250; J2704; J3010; J7030

== ENCOUNTER → 2025-05-19 | Day surgery (SDC) | payer MEDICARE, BC ==
[~2025-05-19] MED LIST changes: +Aspirin 325 MG Tab.EC PO SCH; +Ketorolac 30 MG/ML SDV IVPUSH PRN; +MAGNESIUM AMINO ACID CHELATE PO SCH; +Magnesium Hydroxide 400 MG/5 ML Susp 30 ML Cup PO PRN; +Midazolam 1 MG/ML 2 ML SDV ONE; +Non-Formulary Medication 1 Each (Cholecalciferol (Vitamin D3) [Vitamin D3] 5,000 UNIT Cap) PO SCH; +Non-Formulary Medication 1 Each (Losartan [Cozaar] 100 MG Tablet) PO SCH; +Non-Formulary Medication 1 Each (Meclizine [Antivert] 25 MG Tab.Chew) PO PRN; +Non-Formulary Medication 1 Each (Multivitamin [Multi-Vitamin Daily] 1 EACH Tablet) PO SCH; +Non-Formulary Medication 1 Each (Rosuvastatin [Crestor] 20 MG Tablet) PO SCH; +Nozin Nasal Sanitizer NASBOTH SCH; +Ondansetron 4 MG/2 ML SDV IVPUSH PRN; +Propofol 200 MG/20 ML SDV ONE; -Sodium Chloride 0.9% 1,000 ML IV SCH; +fentaNYL 100 MCG/2 ML SDV ONE
[2025-05-19 08:06] VITALS: BP 145/85; PULSE 78
[2025-05-19 08:06] LABS: PLATELET COUNT,PLT 241.0 K/uL (130-375); RED BLOOD CELL COUNT 4.43 M/uL (4.14-5.76); WHITE BLOOD CELL COUNT,WBC 4.9 K/uL (3.2-11.0)
[2025-05-19 08:09] LABS: BLOOD UREA NITROGEN,BUN 12 mg/dL (7-18); CARBON DIOXIDE,CO2 32 mmol/L (21-32); CHLORIDE,CL 101 mmol/L (100-108); CREATININE 1.0 mg/dL (0.8-1.3); ESTIMATED GFR 78 mL/min (>60); GLUCOSE RANDOM 147 mg/dL (74-106); POTASSIUM,K 4.0 mmol/L (3.6-5.2); SODIUM,NA 138 mmol/L (140-148)
[2025-05-19] MEDS: Nozin Nasal Sanitizer NASBOTH SCH (08:27)
[2025-05-19] MEDS: Lactated Ringers 1,000 ML IV SCH (08:33)
== END ==
LOC: JP.SDS 07:10
PROVIDERS: ATTEND Specialist
DX: M17.11 Unilateral primary osteoarthritis, right knee (principal); I10 Essential (primary) hypertension; E66.9 Obesity, unspecified; E11.9 Type 2 diabetes mellitus without complications; Z53.8 Procedure and treatment not carried out for other reasons
CPT/HCPCS: 36415; 80048; 85027; 93005; A9270; J7120; 93010; J2250; J2704; J3010

== ENCOUNTER 2025-06-02 08:31 | Day surgery (SDC) | payer MEDICARE, BC ==
[2025-06-02 08:53] LABS: PLATELET COUNT,PLT 193.0 K/uL (130-375); RED BLOOD CELL COUNT 4.26 M/uL (4.14-5.76); WHITE BLOOD CELL COUNT,WBC 4.6 K/uL (3.2-11.0)
[2025-06-02 09:09] LABS: BLOOD UREA NITROGEN,BUN 12 mg/dL (7-18); CARBON DIOXIDE,CO2 32 mmol/L (21-32); CHLORIDE,CL 102 mmol/L (100-108); CREATININE 0.9 mg/dL (0.8-1.3); ESTIMATED GFR 89 mL/min (>60); GLUCOSE RANDOM 143 mg/dL (74-106); POTASSIUM,K 4.1 mmol/L (3.6-5.2); SODIUM,NA 141 mmol/L (140-148)
[2025-06-02] MEDS: Nozin Nasal Sanitizer NASBOTH SCH ×2 (10:00→20:41)
[2025-06-02] MEDS: Lactated Ringers 1,000 ML IV SCH (10:20)
[2025-06-02] MEDS ORDERED: Midazolam 1 MG/ML 2 ML SDV ONE ×2 (11:03→12:46)
[2025-06-02] MEDS ORDERED: Propofol 200 MG/20 ML SDV ONE ×2 (11:03→12:45)
[2025-06-02] MEDS ORDERED: fentaNYL 100 MCG/2 ML SDV ONE ×2 (11:03→12:47)
[2025-06-02] MEDS ORDERED: Magnesium Hydroxide 400 MG/5 ML Susp 30 ML Cup PO PRN (12:23)
[2025-06-02] MEDS: Ondansetron 4 MG/2 ML SDV IVPUSH PRN (15:38)
[2025-06-02] MEDS: Ketorolac 15 MG/ML SDV IVPUSH PRN (21:36)
[2025-06-03] MEDS: Multivitamins with Iron/Calcium/Folic Acid/Minerals Tab PO SCH (09:12)
[2025-06-03] MEDS: Aspirin 325 MG Tab.EC PO SCH (09:12)
[2025-06-03] MEDS: Cholecalciferol (Vitamin D3) 25 MCG Tab PO SCH (09:13)
[2025-06-03 15:13] VITALS: BP 161/81; PULSE 78
== END 2025-06-03 15:50 | disposition home or self-care (01) ==
LOC: JP.SDS 08:31 → JP.MS 12:23 → JP.SDS 06-03 15:50
PROVIDERS: ATTEND Specialist
DX: M17.11 Unilateral primary osteoarthritis, right knee (principal); I10 Essential (primary) hypertension
CPT/HCPCS: 27446; 36415; 73560; 80048; 85027; 93005; 97110; 97116; 97161; 97165; A4217; A9270; C1713; J0665; J0690; J1885; J2250; J2405; J2704; J3010; J7030; J7120